=== PATIENT | female | born 1985 | race Caucasian/White ===

== ENCOUNTER 2016-03-14 18:31 | Emergency (ER) | payer OTHER ==
[~2016-03-14] VITALS: Ht 157.5 cm; Wt 76.9 kg
[~2016-03-14 18:31] MED LIST: AZITHROMYCIN250 MG1 PO; CHILDREN'S100 MG/5 M PO; Flintstones PO; HYDROCODON-ACE1 EAC7 PO; MARTEN-TAB 3251 EACH PO; NOHOMEMEDS; Pepcid PO; REGLAN10 MG PO; ROBITUSSIN AC,T10 ML PO; SUMATRIPTAN SUC50 MG PO; TORADOL10 MG PO; ZOFRAN4 MG PO; Zofran SL
[2016-03-14 18:37] VITALS: BP 135/96
[2016-03-14 19:15] LABS: BASOPHIL COUNT 0.1 K/uL (0-0.1); EOSINOPHIL (%) 1.7 % (0-5); EOSINOPHIL COUNT 0.2 K/uL (0-0.3); HEMATOCRIT 33.7 % (36.0-46.0); IMMATURE GRANULOCYTE (%) 0.6 % (0.0-0.7); IMMATURE GRANULOCYTE COUNT 0.6 K/uL; LYMPHOCYTE COUNT 1.9 K/uL (1.0-2.8); MCH 30.1 PG (29.0-34.0); MCHC 35.9 G/DL (30.0-36.0); MCV 83.8 FL (83-99); MEAN PLAT.VOLUME 9.7 uM^3 (9.5-12.4); MONOCYTE (%) 4.7 % (3-12); MONOCYTE COUNT 0.5 K/uL (0-0.8); NEUTROPHIL (%) 74.1 % (45-76); NEUTROPHIL COUNT 7.4 K/uL (1.8-6.4); PLATELET COUNT 282 K/uL (156-360); RBC DIS.WIDTH-SD 38.5 % (39-53); RED BLOOD COUNT 4.02 M/uL (3.80-5.20)
[2016-03-14 19:23] LABS: CHLORIDE 105 mEq/L (99-109); POTASSIUM 3.8 mEq/L (3.7-5.4); SODIUM 139 mEq/L (136-147)
[2016-03-14 19:26] LABS: GLUCOSE 110 mg/dL (70-99); PROTHROMBIN TIME 10.4 (9.2-11.2); PTT 27.3 (25-32)
[2016-03-14 19:27] LABS: ANION GAP 10 MEQ/L (2-14); TOTAL BILIRUBIN 0.4 mg/dL (0.0-1.0)
[2016-03-14 19:29] LABS: ALKALINE PHOSPHATASE 86 IU/L (3-129); GFR ESTIMATE (CALCULATED) > 59 mL/min/
[2016-03-14 19:30] LABS: UREA NITROGEN (BUN) 11 mg/dL (9-23)
[2016-03-14 19:38] LABS: QUANTITATIVE HCG < 4.0 MIU/ML
== END 2016-03-14 21:01 | disposition home or self-care (01) ==
LOC: EME 18:31 → RME 18:31
PROVIDERS: Physician Assistant
DX: R51 Headache (principal); R20.0 Anesthesia of skin; M62.81 Muscle weakness (generalized); M79.602 Pain in left arm; R42 Dizziness and giddiness; Z82.3 Family history of stroke; Z82.49 Family history of ischemic heart disease and other diseases of the circulatory system
CPT/HCPCS: 70450; 80053; 84702; 85025; 85610; 85730; 93005; 99281; 99284